=== PATIENT | male | born 1995 | race Hispanic/Latino ===

== ENCOUNTER 2024-01-04 18:31 | Emergency (ER) | payer SELFPAY ==
[~2024-01-04] VITALS: Ht 170.2 cm; Wt 72.6 kg
[2024-01-04 18:55] VITALS: TEMP 98
[2024-01-04 19:24] LABS: BASOPHILS # (AUTO) 0.1 (0.0-0.1); BASOPHILS % 0.6 % (0.0-1.0); HEMATOCRIT 46.9 % (38.2-49.6); HEMOGLOBIN 15.4 g/dL (14.0-18.0); LYMPHOCYTES # (AUTO) 2.1 (1.0-3.2); LYMPHOCYTES % 14.5 % (18.0-39.1); MEAN CORPUSCULAR HEMOGLOBIN 31.8 pg (28-32); MEAN CORPUSCULAR HGB CONC 32.8 g/dL (31-35); MEAN CORPUSCULAR VOLUME 96.7 fL (81-99); MONOCYTES % 6.7 % (4.4-11.3); NEUTROPHILS # (AUTO) 11.2 (2.1-6.9); NEUTROPHILS % 77.9 % (38.7-80.0); PLATELET COUNT 315 x10e3/uL (140-360); RED BLOOD COUNT 4.85 x10e6/uL (4.3-5.7); RED CELL DISTRIBUTION WIDTH 12.1 % (11.7-14.4); WHITE BLOOD COUNT 14.38 x10e3/uL (4.8-10.8)
[2024-01-04] MEDS: SODIUM CHLORIDE 0.9% 1000ML 2,000 ML IV STA (19:33)
[2024-01-04] MEDS: DIAZEPAM INJ 5 MG/ML 2 ML IV STA (19:39)
[2024-01-04 19:40] LABS: LIPASE 24 U/L (8-78)
[2024-01-04] MEDS ORDERED: SODIUM CHLORIDE 0.9% 0 ML ONE (19:40)
[2024-01-04] MEDS ORDERED: IOPAMIDOL 370 MG/ML 100 ML INFUS..BTL INJ ONE (19:40)
[2024-01-04 19:41] LABS: ALBUMIN 5.5 g/dL (3.5-5.0); ALBUMIN/GLOBULIN RATIO 1.5 (0.8-2.0); ANION GAP 25.2 mmol/L (8-16); BILIRUBIN,TOTAL 0.7 mg/dL (0.2-1.2); CALCIUM 11.2 mg/dL (8.4-10.2); CREATININE, SERUM 1.5 mg/dL (0.72-1.25); ETHANOL < 10.0 mg/dL (0.0-10.0); POTASSIUM 4.2 mmol/L (3.5-5.1); TOTAL PROTEIN 9.2 g/dL (6.5-8.1)
[2024-01-04 19:47] LABS: TROPONIN I 0.005 ng/mL (0-0.300)
[2024-01-04 20:34] LABS: ABG HCO3 21 mmol/L (22-26); ABG PCO2 35 mmHg (35-45); ABG PH 7.39 (7.35-7.45); ABG PO2 102 mmHg (80-105); ABG TCO2 22
[2024-01-04 21:10] LABS: AMPHETAMINES SCREEN,URINE NEGATIVE (NEGATIVE); BENZODIAZEPINES SCREEN,URINE NEGATIVE (NEGATIVE); CANNABINOIDS SCREEN,URINE NEGATIVE (NEGATIVE); METHADONE SCREEN, URINE NEGATIVE (NEGATIVE); OPIATES SCREEN,URINE NEGATIVE (NEGATIVE); PHENCYCLIDINE SCREEN,URINE NEGATIVE (NEGATIVE)
[2024-01-04 21:44] VITALS: PULSE 83; RESP 16; O2SAT 98
== END 2024-01-04 21:42 | disposition home or self-care (01) ==
LOC: ER 18:37
DX: R41.82 Altered mental status, unspecified (principal); R00.0 Tachycardia, unspecified; J45.909 Unspecified asthma, uncomplicated; F41.9 Anxiety disorder, unspecified; Z11.52 Encounter for screening for COVID-19; R94.31 Abnormal electrocardiogram [ECG] [EKG]
CPT/HCPCS: 36415; 36600; 70496; 70498; 71045; 80053; 80307; 80320; 82550; 82805; 83690; 83880; 84484; 85025; 93005; 99284; J3360; J7030; Q9967; U0002; J7050